=== PATIENT | female | born 1960 | race Caucasian/White ===

== ENCOUNTER → 2017-01-18 | Outpatient (CLI) | payer OTHER ==
[~2017-01-18] MED LIST: BENICAR HCT 201 EACH PO; BENICAR20 MG; COLACE100 MG PO; LIPITOR10 MG PO; LIPITOR20 MG; MIRALAX255 GM PO
== END ==
LOC: RAD 03:49
DX: Z12.31 Encounter for screening mammogram for malignant neoplasm of breast (principal)

== ENCOUNTER → 2018-02-01 | Outpatient (CLI) | payer OTHER | LOC: RAD 07:42 | DX: Z12.31 Encounter for screening mammogram for malignant neoplasm of breast (principal) ==

== ENCOUNTER → 2019-02-07 | Outpatient (CLI) | payer OTHER | LOC: BC 08:32 | DX: Z12.31 Encounter for screening mammogram for malignant neoplasm of breast (principal) ==

== ENCOUNTER → 2020-03-18 | Outpatient (CLI) | payer OTHER | LOC: BC 10:47 | PROVIDERS: ATTEND Family Medicine | DX: Z12.31 Encounter for screening mammogram for malignant neoplasm of breast (principal) ==

== ENCOUNTER → 2021-04-13 | Outpatient (CLI) | payer OTHER | LOC: BC 08:27 | PROVIDERS: ATTEND Family Medicine | DX: Z12.31 Encounter for screening mammogram for malignant neoplasm of breast (principal) ==